=== PATIENT | female | born 1940 | race Two or more races ===

== ENCOUNTER 2025-09-12 12:15 | Inpatient (IN) | payer BC, MEDICAID ==
[~2025-09-12] VITALS: Ht 170.2 cm; Wt 78.6 kg
--- NOTE | 2025-09-12 13:06 | ED.PDOC ---
History of Present Illness HPI Comments 85 year old female presents to the ED via EMS with a chief complaint of nausea/vomiting onset last night around 21:00. Patient states she was seen at urgent care yesterday, given antibiotics for LT hand dog bite, took 1st course last night around 17:00. At around 21:00 she began experiencing nausea, vomiting , shortness of breath. This morning, symptoms persisted, began experiencing abdominal pain with some chest discomfort. She was given Tylenol 1 g as well as NS 300 mL in route to ED by EMS. Patient refused Nitro and Fentanyl in route to ED. Denies dizziness, blurred vision, numbness/tingling, fever, chills, dysuria, hematuria. No other symptoms or modifying factors present at this time. Chief Complaint: Chest Pain Time Seen by MD: 12:50 Reviewed Notes: Medications, Allergies Allergies: Coded Allergies: Bacitracin (Verified Allergy, Severe, 09/12/25) Neomycin (Verified Allergy, Severe, 09/12/25) Polymyxin B (Verified Allergy, Severe, 09/12/25) Information Source: Patient, Emergency Med Personnel Mode of Arrival: EMS Severity: Moderate Timing: Hours Duration: Since onset Prehospital treatment: Other Past Medical History PAST MEDICAL HISTORY: Cancer Surgical History: Appendectomy, Cholecystectomy HEAD AUTOMATIC SAWYER History: No Pertinent HEAD AUTOMATIC SAWYER History Family History Family History: Reviewed,noncontributory to illness, No family hx of Cancer, No family hx of DM, No family hx of Heart celso, No family hx of HTN, No family hx ofKidney celso, No family hx of Liver celso, No family hx of Lung celso, No family hx of Stroke Social History Smoker: Non-Smoker Alcohol: Denies ETOH Use Drugs: Denies Drug Use Lives In: Home Constitutional: denies: chills, diaphoresis, fatigue, fever, malaise, sweats, weakness, others EENTM: denies: blurred vision, double vision, ear bleeding, ear discharge, ear drainage, ear pain, ear ringing, eye pain, eye redness, hearing loss, mouth pain, mouth swelling, nasal discharge, nose bleeding, nose congestion, nose pain, photophobia, tearing, throat pain, throat swelling, voice changes, others Respiratory: reports: shortness of breath; denies: cough, hemoptysis, orthopnea, SOB at rest, SOB with excertion, stridor, wheezing, others Cardiovascular: denies: chest pain, dizzy spells, diaphoresis, Dyspnea on exertion, edema, irregular heart beat, left arm pain, lightheadedness, pa lpitations, PND, syncope, others Gastrointestinal: reports: nausea, vomiting; denies: abdomen distended, abdominal pain, blood streaked bowels, constipated, diarrhea, dysphagia, difficulty swallowing, hematemesis, melena, poor appetite, poor fluid intake, rectal bleeding, rectal pain, others Genitourinary: denies: abnormal vagina bleeding, burning, dyspareunia, dysuria, flank pain, frequency, hematuria, incontinence, pain, , vagina discharge, urgency, others Neurological: denies: dizziness, fainting, headache, left sided numbness, left sided weakness, numbness, paresthesia, pre-existing deficit, right sided numbness, right sided weakness, seizure, speech problems, tingling, tremors, weakness, others Musculoskeletal: denies: back pain, gout, joint pain, joint swelling, muscle pain, muscle stiffness, neck pain, others Integumetry: reports: wounds (LT hand); denies: bruises, change in color, change in hair/nails, dryness, laceration, lesions, lumps, rash, others Allergic/Immunocompromised: denies: Difficulty Healing, Frequent Infections, Hives, Itching, others Hematologic/Lymphatic: denies: anemia, blood clots, easy bleeding, easy bruising, swollen glands, others Endocrine: denies: excessive hunger, excessive sweating, excessive thirst, excessive urination, flushing, intolerance to cold, intolerance to heat, unexplained weight gain, unexplained weight loss, others Psychiatric: denies: anxiety, bipolar disorder, depression, hopeless, panic disorder, schizophrenia, sleepless, suicidal, others All Other Systems: Reviewed and Negative Physical Exam General Appearance: Moderate Distress, Normal HEENT: Normal ENT Inspection, Pharynx Normal, TMs Normal Neck: Full Range of Motion, Non-Tender, Normal, Normal Inspection Respiratory: Chest Non-Tender, Lungs Clear, No Accessory Muscle Use, No Respiratory Distress, Normal Breath Sounds Cardiovascular: No Edema, No JVD, No Murmur, No Gallop, Normal Peripheral Pulses, Regular Rate/Rhythm Breast Exam: Deferred Gastrointestinal: No Organomegaly, Non Tender, No Pulsatile Mass, Normal Bowel Sounds, Soft Genitalia: Deferred Pelvic: Deferred Rectal: Deferred Extremities: No calf tenderness, Normal capillary refill, Normal inspection, Normal range of motion, Non-tender, No pedal edema Musculoskeletal : Apperance: Normal Neurologic: Alert, c s s representative II-XII nml as Tested, No Motor Deficits, Normal Affect, Normal Mood, No Sensory Deficits Cerebellar Function: NOT DONE Reflexes: NOT DONE Skin: Dry, Normal Color, Warm, Wounds (Wound from a cat left hand) Peripheral Pulses: 3+ Radial (R), 3+ Radial (L) Lymphatic: No Adenopathy Was a procedure done? Was a procedure done?: No Differential Dx Considerations may include: Cellulitis Electrolyte imbalance X-Ray, Labs, Meds, VS Vital Signs Date Time Temp Pulse Resp B/P (MAP) Pulse Ox O2 Delivery O2 Flow Rate FiO2 09/12/25 13:23 77 09/12/25 12:57 Room Air* 0 21 09/12/25 12:56 98.4 78 19 111/42 (65) 99 98.4 09/12/25 12:21 83 09/12/25 12:15 98.4 100 18 107/74 97 98.4 Lab Test 09/12/25 14:55 09/12/25 13:01 Range/Units Troponin I High Sensitivity 2587 *H 2393 *H </=34 ng/L White Blood Count 14.8 H 4.4-10.8 10^3/uL Red Blood Count 4.27 4.0-5.20 10^6/uL Hemoglobin 13.0 12.2-16.2 g/dL Hematocrit 40.9 36.0-46.0 % Mean Corpuscular Volume 95.9 80.0-100.0 fL Mean Corpuscular Hemoglobin 30.6 28.0-32.0 pg Mean Corpuscular Hemoglobin Concent 31.9 L 32.0-36.0 g/dL Red Cell Distribution Width 14.5 H 11.8-14.3 % Platelet Count 220 140-450 10^3/uL Mean Platelet Volume 8.6 6.9-10.8 fL Neutrophils (%) (Auto) 89.6 H 37.0-80.0 % Lymphocytes (%) (Auto) 4.5 L 10.0-50.0 % Monocytes (%) (Auto) 5.8 0.0-12.0 % Eosinophils (%) (Auto) 0.0 0.0-7.0 % Basophils (%) (Auto) 0.1 0.0-2.0 % Neutrophils # (Auto) 13.2 H 1.6-8.6 10 ^3/uL Lymphocytes # (Auto) 0.7 0.4-5.4 10 ^3/uL Monocytes # (Auto) 0.9 0-1.3 10 ^3/uL Eosinophils # (Auto) 0 0-0.8 10 ^3/uL Basophils # (Auto) 0 0-0.2 10 ^3/uL Nucleated Red Blood Cells 0.0 % Sodium Level 141 136-145 mmol/L Potassium Level 4.3 3.5-5.1 mmol/L Chloride Level 107 98-107 mmol/L Carbon Dioxide Level 19 L 20-31 mmol/L Anion Gap 15 5-15 Blood Urea Nitrogen 24 H 9-23 mg/dL Creatinine 0.83 0.550-1.02 mg/dL Glomerular Filtration Rate Calc 68 >90 mL/min BUN/Creatinine Ratio 28.9 H 10.0-20.0 Serum Glucose 123 H 74-106 mg/dL Calcium Level 9.0 8.7-10.4 mg/dL Current Medications Medications (Trade) Dose Ordered Sig/Wan Route Start Time Stop Time Status Last Admin Sodium Chloride 1,000 ml @ 1,000 mls/hr Q1H ONCE IV 09/12/25 13:15 09/12/25 14:14 DC 09/12/25 13:07 Piperacillin Sod/ Tazobactam Sod 100 ml @ 100 mls/hr ONCE ONCE IV 09/12/25 13:15 09/12/25 14:14 DC 09/12/25 13:38 Clindamycin Phosphate 50 ml @ 50 mls/hr ONCE ONCE IV 09/12/25 13:15 09/12/25 14:14 DC 09/12/25 13:07 Enoxaparin Sodium (Lovenox) 70 mg ONCE ONCE SC 09/12/25 13:45 09/12/25 13:46 DC 09/12/25 13:42 Aspirin 325 mg ONCE ONCE PO 09/12/25 14:45 09/12/25 15:11 DC 09/12/25 15:19 Atorvastatin Calcium (Lipitor) 80 mg ONCE ONCE PO 09/12/25 14:45 09/12/25 15:11 DC 09/12/25 15:19 Patient alert. Complaining of chest pain wound in the left hand. Vitals stable. Answering all questions. On examination she does have redness around the wound. Cardiac marker elevated. Was given Lovenox. Was given antibiotics. Establish intravenous access. Was given fluids. EKG does not show any acute changes. Cardiology consultation. Explained to the patient. Continue to monitor. Time of 1ST Reevaluation: 13:20 Reevaluation 1ST: Unchanged Patient Education/Counseling: Diagnosis, Treatment, Prognosis Family Education/Counseling: No Family Present SEPSIS Sepsis Screen Date sepsis recognized/suspect: Sep 12, 2025 Time Sepsis recognized/suspect: 123 Recent Procedure: No On Antibiotic Therapy: No Respiratory Rate >20: No Heart Rate >90: No Temp<36 C (96.8 F) or >38.3 C: No SBP <90 or MAP <65 mmHG: No New Acute Mental Status Change: No Is the patient on CPAP, BIPAP,: No Physician Orders Electrocardigram (09/12/25 12:21) Electrocardigram (09/12/25 13:21) Electrocardigram (09/12/25 15:21) Chest Portable (09/12/25 12:41) Urinalysis (09/12/25 12:41) Ct Ab Pel Wo Con-No Oral Or Iv (09/12/25 14:34) Blood Culture (09/12/25 14:34) Vital Signs Date Time Temp Pulse Resp B/P (MAP) Pulse Ox O2 Delivery O2 Flow Rate FiO2 09/12/25 13:23 77 09/12/25 12:57 Room Air* 0 21 09/12/25 12:56 98.4 78 19 111/42 (65) 99 98.4 09/12/25 12:21 83 09/12/25 12:15 98.4 100 18 107/74 97 98.4 Laboratory Tests Test 09/12/25 13:01 White Blood Count 14.8 10^3/uL (4.4-10.8) H Medications Medications Dose Ordered Sig/Wan Route Start Time Stop Time Status Last Admin Dose Admin Aspirin 325 mg ONCE ONCE PO 09/12/25 14:45 09/12/25 15:11 DC 09/12/25 15:19 Atorvastatin Calcium 80 mg ONCE ONCE PO 09/12/25 14:45 09/12/25 15:11 DC 09/12/25 15:19 Clindamycin Phosphate 50 ml @ 50 mls/hr ONCE ONCE IV 09/12/25 13:15 09/12/25 14:14 DC 09/12/25 13:07 Enoxaparin Sodium 70 mg ONCE ONCE SC 09/12/25 13:45 09/12/25 13:46 DC 09/12/25 13:42 Piperacillin Sod/ Tazobactam Sod 100 ml @ 100 mls/hr ONCE ONCE IV 09/12/25 13:15 09/12/25 14:14 DC 09/12/25 13:38 Sodium Chloride 1,000 ml @ 1,000 mls/hr Q1H ONCE IV 09/12/25 13:15 09/12/25 14:14 DC 09/12/25 13:07 Departure 1 Departure Time of Disposition: 17:46 Impression: Primary Impression: NSTEMI (non-ST elevated myocardial infarction) Additional Impressions: Autonomic disorder Cellulitis Qualified Codes: L03.114 - Cellulitis of left upper limb Disposition: 09 ADMITTED INPATIENT Admit to: Med Surg Condition: Guarded Critical Care Note Critical Care Time?: Yes (90 min-critical care time only) Stability Stability form required: No Heart Score Heart Score: Heart Score Response (Comments) Value History Slightly Suspicious 0 EKG Normal 0 Age >65 2 Risk Factors >3 or Hx ASHD 2 Troponin >3 x's Normal limit 2 Total 6 I personally scribed for PALMA FELDMAN MD ([email or web address]) on 09/12/25 at 13:06. Electronically submitted by Kelly Camacho ([email or web address]). PALMA FELDMAN MD Sep 12, 2025 13:06
[2025-09-12] MEDS: SODIUM CHLORIDE 0.9% 1,000 ML IV ONE (13:07)
[2025-09-12] MEDS: CLINDAMYCIN 300MG IV 50 ML IV ONE (13:07)
--- NOTE | 2025-09-12 13:24 | DVH ---
CHEST RADIOGRAPH Indication: sob Technique: Single frontal view of the chest was obtained COMPARISON: None FINDINGS: Lines and Tubes: None Lungs: Congestion Pleura: No effusion. No pneumothorax. Cardiomediastinal contours: Unremarkable Bones: Unremarkable IMPRESSION: Increased interstital prominence. This may represent pulmonary vascular congestion and/or viral pneum onia. Clinical correlation advised.
[2025-09-12] MEDS: PIPERACILLIN-TAZOB 3.375GM 100 ML IV ONE (13:38)
[2025-09-12] MEDS: ENOXAPARIN SOD 80 MG/0.8ML SYRINGE SC ONE (13:42)
[2025-09-12 14:07] LABS: Hematocrit 40.9 % (36.0-46.0); Hemoglobin 13.0 g/dL (12.2-16.2); Mean Corpuscular Hemoglobin 30.6 pg (28.0-32.0); Mean Corpuscular Volume 95.9 fL (80.0-100.0); Nucleated Red Blood Cells % 0.0 %; Potassium 4.3 mmol/L (3.5-5.1); Sodium 141 mmol/L (136-145)
[2025-09-12 14:08] LABS: Anion Gap 15 (5-15); Chloride 107 mmol/L (98-107)
[2025-09-12 14:09] LABS: Calcium 9.0 mg/dL (8.7-10.4)
[2025-09-12 14:10] LABS: Carbon Dioxide 19 mmol/L (20-31)
[2025-09-12 14:14] LABS: BUN/Creatinine Ratio 28.9 (10.0-20.0); Blood Urea Nitrogen 24 mg/dL (9-23); Glucose 123 mg/dL (74-106)
--- NOTE | 2025-09-12 15:10 | DVHHPRES ---
History of Present Illness Resident Creating Document: LEVON COLE RESIDENT History of Present Illness This is a 85-year-old female with past medical history of hypothyroidism presented to the ED via EMS with chief complaints of nausea, vomiting, chest pain since last night around 9:00 p.m prior to this visit. The patient stated that chest pain which felt like heaviness sharp pain, 8/10, radiates to the left arm and associated with sweating, nausea,and vomiting. Patient states she was seen at urgent care yesterday, given antibiotics for Left hand dog bite, took 1st course last night around 17:00. At around 21:00 she began experiencing nausea, vomiting, shortness of breath. This morning, symptoms persisted, began experiencing abdominal pain with some chest discomfort. She was given Tylenol 1 g as well as NS 300 mL in route to ED by EMS. Patient refused Nitro and Fentanyl in route to ED. Denies dizziness, blurred vision, numbness/tingling, fever, chi lls, dysuria, hematuria. EKG demonstrated sinus rhythm, but troponin was elevated and up trending. Cardiology consulted and scheduled for left heart catheterization tomorrow. PCP: Dr. Debra Shah Past Medical History Hypothyroidism Past Surgical History: Appendectomy, Cholecystectomy Past Surgical History Appendectomy, cholecystectomy, lumpectomy of left breast for breast cancer, arthroscopy of left knee Family History Noncontributory Smoke: No ALCOHOL: none Drugs: None Past Social History Nonsmoker, nonalcoholic and never tried any drugs Lives alone and has caregiver comes 3 times a week Review of Systems Constitutional: Yes: Chills; No: Fever, Sweats, Weakness, Malaise, Other Eyes: No: Pain, Vision change, Conjunctivae inflammation, Eyelid inflammation, Other, Redness ENT: No: Ear pain, Ear discharge, Nose pain, Nose discharge, Nose congestion, Mouth pain, Mouth swelling, Throat pain, Throat swelling, Other Respiratory: Shortness of breath; No: Cough, Dry, SOB with excertion, Wheezing, Hemoptysis, Pleuritic Pain, Sputum, Wheezing, Other Cardiovascular: Chest Pain; No: Palpitations, Orthopnea, Paroxysmal Noc. Dyspnea, Edema, Lt Headedness, Other Gastrointestinal: Nausea, Vomiting; No: Abdominal Pain, Diarrhea, Constipation, Melena, Hematochezia, Other Genitourinary: No Dysuria, No Frequency, No Incontinence, No Hematuria, No Retention, No Other Musculoskeletal: No: other, neck pain, shoulder pain, arm pain, back pain, hand pain, leg pain, foot pain Skin: No: Rash, Lesions, Jaundice, Bruising, Other Neurological: No: Weakness, Numbness, Incoordination, Change in speech, Confusion, Seizures, Other Allergies: Coded Allergies: Bacitracin (Verified Allergy, Severe, 09/12/25) Neomycin (Verified Allergy, Severe, 09/12/25) Polymyxin B (Verified Allergy, Severe, 09/12/25) Exam Vital Signs Vital Signs Date Time Temp Pulse Resp B/P (MAP) Pulse Ox O2 Delivery O2 Flow Rate FiO2 09/12/25 13:23 77 09/12/25 12:57 Room Air* 0 21 09/12/25 12:56 98.4 19 111/42 (65) 99 98.4 Exam Physical examination: General Appearance: Alert, Oriented X3, Cooperative, No acute distress HEENT: Atraumatic, PERRLA, EOMI, Mucous membrane moist/pink Respiratory: Clear to auscultation, Normal air movement Cardiovascular: Regular rate, Normal S1, Normal S2, No murmurs, no chest wall tenderness Abdominal: Normal bowel sounds, Soft, No tenderness, No hepatospenomegaly, No masses Extremities: No clubbing, No cyanosis, No edema, Normal pulses, No tend erness/swelling Skin: Bite marco on the dorsal surface of the left hand, No rashes, No breakdown, No significant lesion Neuro: Use walker, Normal speech, Strength at 5/5 X4 ext, Normal tone, Sensation intact, Cranial nerves 3-12 NL, Reflexes 2+ Psych/Mental Status: Mental status NL, Mood NL Labs/Xrays Labs Test 09/12/25 14:55 09/12/25 13:01 Range/Units White Blood Count 14.8 H 4.4-10.8 10^3/uL Red Blood Count 4.27 4.0-5.20 10^6/uL Hemoglobin 13.0 12.2-16.2 g/dL Hematocrit 40.9 36.0-46.0 % Mean Corpuscular Volume 95.9 80.0-100.0 fL Mean Corpuscular Hemoglobin 30.6 28.0-32.0 pg Mean Corpuscular Hemoglobin Concent 31.9 L 32.0-36.0 g/dL Red Cell Distribution Width 14.5 H 11.8-14.3 % Platelet Count 220 140-450 10^3/uL Mean Platelet Volume 8.6 6.9-10.8 fL Neutrophils (%) (Auto) 89.6 H 37.0-80.0 % Lymphocytes (%) (Auto) 4.5 L 10.0-50.0 % Monocytes (%) (Auto) 5.8 0.0-12.0 % Eosinophils (%) (Auto) 0.0 0.0-7.0 % Basophils (%) (Auto) 0.1 0.0-2.0 % Neutrophils # (Auto) 13.2 H 1.6-8.6 10 ^3/uL Lymphocytes # (Auto) 0.7 0.4-5.4 10 ^3/uL Monocytes # (Auto) 0.9 0-1.3 10 ^3/uL Eosinophils # (Auto) 0 0-0.8 10 ^3/uL Basophils # (Auto) 0 0-0.2 10 ^3/uL Nucleated Red Blood Cells 0.0 % Sodium Level 141 136-145 mmol/L Potassium Level 4.3 3.5-5.1 mmol/L Chloride Level 107 98-107 mmol/L Carbon Dioxide Level 19 L 20-31 mmol/L Anion Gap 15 5-15 Blood Urea Nitrogen 24 H 9-23 mg/dL Creatinine 0.83 0.550-1.02 mg/dL Glomerular Filtration Rate Calc 68 >90 mL/min BUN/Creatinine Ratio 28.9 H 10.0-20.0 Serum Glucose 123 H 74-106 mg/dL Calcium Level 9.0 8.7-10.4 mg/dL SEPSIS Sepsis Screen Date sepsis recognized/suspect: Sep 12, 2025 Time Sepsis recognized/suspect: 1231 Recent Procedure: No On Antibiotic Therapy: No Respiratory Rate >20: No Heart Rate >90: No Temp<36 C (96.8 F) or >38.3 C: No SBP <90 or MAP <65 mmHG: No New Acute Mental Status Change: No Is the patient on CPAP, BIPAP,: No Physician Orders Electrocardigram (09/12/25 12:21) Troponin-I Hs (09/12/25 13:21) Troponin-I Hs (09/12/25 15:21) Electrocardigram (09/12/25 13:21) Electrocardigram (09/12/25 15:21) Chest Portable (09/12/25 12:41) Urinalysis (09/12/25 12:41) Echo 2d Mode Cardiac Dop (09/12/25 13:57) Ct Ab Pel Wo Con-No Oral Or Iv (09/12/25 14:34) Aspirin Tablet (09/12/25 14:45) Atorvastatin (Lipitor) (09/12/25 14:45) Blood Culture (09/12/25 14:34) Admit (09/12/25 15:07) Nitroglycerin Sublingual (Ntrostat Subli (09/12/25 15:15) Morphine Sulfate Injection (09/12/25 15:15) Oxygen By Nasal Cannula (09/12/25 15:07) Stat Ekg For Chest Pain (09/12/25 15:07) Notify Md Of Changes From Base (09/12/25 15:07) Paper Sales Representative For 24 Hours (09/12/25 15:07) Emergency Dysrhythmia Protocol (09/12/25 15:07) Rhythm Strips Once Every Shift (09/12/25 15:07) * Cardiology Consult (09/12/25 15:07) Vital Signs Date Time Temp Pulse Resp B/P (MAP) Pulse Ox O2 Delivery O2 Flow Rate FiO2 09/12/25 13:23 77 09/12/25 12:57 Room Air* 0 21 09/12/25 12:56 98.4 78 19 111/42 (65) 99 98.4 09/12/25 12:21 83 09/12/25 12:15 98.4 100 18 107/74 97 98.4 Laboratory Tests Test 09/12/25 13:01 White Blood Count 14.8 10^3/uL (4.4-10.8) H Medications Medications Dose Ordered Sig/Wan Route Start Time Stop Time Status Last Admin Dose Admin Clindamycin Phosphate 50 ml @ 50 mls/hr ONCE ONCE IV 09/12/25 13:15 09/12/25 14:14 DC 09/12/25 13:07 50 MLS/HR Enoxaparin Sodium 70 mg ONCE ONCE SC 09/12/25 13:45 09/12/25 13:46 DC 09/12/25 13:42 70 MG Piperacillin Sod/ Tazobactam Sod 100 ml @ 100 mls/hr ONCE ONCE IV 09/12/25 13:15 09/12/25 14:14 DC 09/12/25 13:38 100 MLS/HR Sodium Chloride 1,000 ml @ 1,000 mls/hr Q1H ONCE IV 09/12/25 13:15 09/12/25 14:14 DC 09/12/25 13:07 1,000 MLS/HR Assessment/Plan Assessment/Plan Assessment and plan # Acute chest pain likely due to NSTEMI # Possible NSTEMI type 1 # Abdominal pain, nausea and vomiting, rule out colitis # Possible cellulitis of the left hand Plan: - Admit to the telemetry - Troponin is up trending - Cardiology evaluated the patient and recommended left heart catheterization tomorrow - Patient was given 1 L IV bolus - IV normal saline at 75 mL/hours - NPO after midnight - Patient was given aspirin 325 mg once, atorvastatin 80 mg once - Patient was given Lovenox 70 mg SC, IV heparin drip as per protocol from 4 am on 09/13/25 - Pending echo, CT abdomen pelvis without contrast, blood culture, urine culture, urinalysis - IV Zosyn 3.375 g once and Q 8 hours - DVT prophylaxis due to the procedure tomorrow Goal of care discussed with the patient for more than 20 minutes full code Plan discussed with Dr. Lewis Plan discussed with: Patient, Other (RN) My Orders Orders - LEVON COLE RESIDENT Procedure Category Date Status Time Admit ADMIT 09/12/25 Verified 15:07 Nitroglycerin PHA 09/12/25 Verified Sublingual (Ntrostat 15:15 Morphine Sulfate PHA 09/12/25 Verified Injection 15:15 Oxygen By Nasal RT 09/12/25 Verified Cannula 15:07 Stat Ekg For Chest [facility] 09/12/25 Verified Pain 15:07 Notify Of Changes [facility] 09/12/25 Verified From Base 15:07 Paper Sales Representative For [facility] 09/12/25 Verified 24 Hours 15:07 Emergency Dysrhythmia [facility] 09/12/25 Verified Protocol 15:07 Rhythm Strips Once [facility] 09/12/25 Verified Every Shift 15:07 * Cardiology Consult CONS 09/12/25 Verified 15:07 Date of Service: Sep 12, 2025 Billing Provider: BREANA LEWIS MD Common Visit Codes: [id number] INP/OBS CARE (HIGH) LEVON COLE RESIDENT Sep 12, 2025 15:10 BREANA LEWIS MD Sep 12, 2025 21:39
[2025-09-12] MEDS ORDERED: MORPHINE SULFATE INJ 2 MG/ml SYRG IV PRN (15:15)
[2025-09-12] MEDS ORDERED: NITROGLYCERIN 0.4 MG SL TAB SL PRN (15:15)
[2025-09-12] MEDS: ATORVASTATIN 20 MG TAB PO ONE (15:19)
--- NOTE | 2025-09-12 16:07 | DVH ---
Exam: CT CT AB PEL WO CON-NO ORAL OR IV History: abd pain/n/v Comparison Study: None Technique: Multidetector spiral CT of the abdomen was performed from lung bases to pubic symphysis. I maging was performed without IV contrast. Axial, coronal and sagittal multiplanar reformats were obta ined from the axial data set by the technologist. Radiation Dose : 1. Abdomen/Pelvis: CTDIvol 22.03 mGy, DLP 1102.16 mGy*cm. Findings: Evaluation of solid organs is limited due to lack of intravenous contrast use. Lung Bases: No acute or significant lung base finding. Normal heart size. No pleural or pericardial effusion. Liver: The liver is normal in size. No focal lesions. Gallbladder and Biliary Tree: Gallbladder is surgically absent. Spleen: Unremarkable Pancreas: The pancreas is grossly normal in appearance. Adrenal Glands: Unremarkable Kidneys: Kidneys are grossly normal without calculi or hydronephrosis. Bladder: Grossly unremarkable for degree of distention. Bowel: The stomach is grossly normal in appearance. Small bowel and colon are normal in caliber and d istribution. The appendix is not visualized; however, no secondary findings of acute appendicitis moo ntified. Ascites: Absent Lymphadenopathy: No mesenteric, retroperitoneal or periportal lymphadenopathy. Abdominal Wall and Mesentery: Small right inguinal hernia containing a short loop of nonobstructed no ninflamed distal small bowel.. Vasculature: The visualized abdominal aorta is normal in size and caliber. Evaluation of abdominal a nd pelvic vessels is limited due to lack of intravenous contrast. Pelvic Organs: Unremarkable Musculoskeletal: No aggressive focal bony lesions, acute fractures or dislocation. IMPRESSION: No acute abdominal or pelvic findings. Small right inguinal hernia containing a short segment of nonobstructed noninflamed distal small aria l. Radiation optimization: All CT scans at this facility use at least one of these dose optimization zee hniques: automated exposure control mA and/or kV adjustment per patient size (includes targeted exam s where dose is matched to clinical indication) or iterative reconstruction.
[2025-09-12] MEDS: CLOPIDOGREL BISULFATE 75 MG TAB PO ONE (16:09)
[2025-09-12 16:20] LABS: INR 1.07 (0.9-1.15); Partial Thromboplastin Time 29.6 SEC (24.5-34.5); Prothrombin Time 11.3 sec (9.3-11.8)
--- NOTE | 2025-09-12 16:20 | DVHINCON2 ---
Date Seen: Sep 12, [address] Ding Reason for Consultation chest pain- NSTEMI History of Present Illness This is an 85-year-old female with a past medical history of hypothyroidism, currently on levothyroxine and aspirin, who presented with one day of chest pain. The pain was described as pressure-like, located on the left side of the chest, non-radiating, and rated as 9/10 in intensity at onset around 9 p.m. yesterday, currently 3/10. The patient denies associated dyspnea, diaphoresis, or palpitations. She reports nausea and vomiting, which she attributes to antibiotics started four days ago for a dog scratch. She denies fever, chills, or recent exertional symptoms. The patient is normally functional and independent in activities of daily living. She denies prior cardiac disease. Family history is notable for her sons at age 62 from a myocardial infarction while awaiting open-heart surgery. Initial troponin was elevated at 2000 ng/L. EKG reviewed shows ST-T wave abnormalities concerning for ischemia. Echocardiogram performed today shows reduced ejection fraction with akinetic apex, consistent with an ischemic pattern. Past Medical History: Hypothyroidism COPD: second hand smoking Medications: Levothyroxine Aspirin Allergies: No known drug allergies Family History: Son of myocardial infarction at 62 years old Social History: Denies tobacco, alcohol, or illicit drug use Retired; lives independently Allergies: Coded Allergies: Bacitracin (Verified Allergy, Severe, 09/12/25) Neomycin (Verified Allergy, Severe, 09/12/25) Polymyxin B (Verified Allergy, Severe, 09/12/25) Current Medications Current Medications Medications (Trade) Dose Ordered Sig/Wan Route PRN Reason Start Time Stop Time Status Last Admin Nitroglycerin (Ntrostat Sublingual) 0.4 mg Q5MINP PRN SL FOR CHEST PAIN 09/12/25 15:15 Morphine Sulfate 2 mg Q30M PRN IV FOR CHEST PAIN 09/12/25 15:15 Piperacillin Sod/ Tazobactam Sod 100 ml @ 100 mls/hr Q8HR IV 09/12/25 22:00 UNV Review of Systems General: No fever, chills, or weight loss. HEENT: No headache or visual changes. Cardiac: Positive for chest pain, no palpitations. Respiratory: No shortness of breath or cough. GI: Positive for nausea and vomiting, no abdominal pain. : No dysuria or frequency. Neuro: No focal weakness or dizziness. MSK: No joint pain or swelling. Skin: Healing scratch on arm and hand, no erythema or drainage. Vital Signs Vital Signs Date Time Temp Pulse Resp B/P (MAP) Pulse Ox O2 Delivery O2 Flow Rate FiO2 09/12/25 13:23 77 09/12/25 12:57 Room Air* 0 21 09/12/25 12:56 98.4 19 111/42 (65) 99 98.4 Physical Exam General: Elderly female, alert, cooperative, in no acute distress. HEENT: Normocephalic, atraumatic. Mucous membranes moist. Neck: No JVD, no carotid bruits. Cardiac: Regular rate and rhythm, no murmurs, rubs, or gallops. Lungs: Crackles bibasal Abdomen: Soft, non-tender, non-distended. No palpable hernias Extremities: No edema or cyanosis. Neuro: Alert and oriented x3, no focal deficits. Skin: Warm, dry. Labs/Diagnostic Data Labs Test 09/12/25 14:55 09/12/25 13:01 Range/Units Troponin I High Sensitivity 2587 *H </=34 ng/L White Blood Count 14.8 H 4.4-10.8 10^3/uL Red Blood Count 4.27 4.0-5.20 10^6/uL Hemoglobin 13.0 12.2-16.2 g/dL Hematocrit 40.9 36.0-46.0 % Mean Corpuscular Volume 95.9 80.0-100.0 fL Mean Corpuscular Hemoglobin 30.6 28.0-32.0 pg Mean Corpuscular Hemoglobin Concent 31.9 L 32.0-36.0 g/dL Red Cell Distribution Width 14.5 H 11.8-14.3 % Platelet Count 220 140-450 10^3/uL Mean Platelet Volume 8.6 6.9-10.8 fL Neutrophils (%) (Auto) 89.6 H 37.0-80.0 % Lymphocytes (%) (Auto) 4.5 L 10.0-50.0 % Monocytes (%) (Auto) 5.8 0.0-12.0 % Eosinophils (%) (Auto) 0.0 0.0-7.0 % Basophils (%) (Auto) 0.1 0.0-2.0 % Neutrophils # (Auto) 13.2 H 1.6-8.6 10 ^3/uL Lymphocytes # (Auto) 0.7 0.4-5.4 10 ^3/uL Monocytes # (Auto) 0.9 0-1.3 10 ^3/uL Eosinophils # (Auto) 0 0-0.8 10 ^3/uL Basophils # (Auto) 0 0-0.2 10 ^3/uL Nucleated Red Blood Cells 0.0 % Sodium Level 141 136-145 mmol/L Potassium Level 4.3 3.5-5.1 mmol/L Chloride Level 107 98-107 mmol/L Carbon Dioxide Level 19 L 20-31 mmol/L Anion Gap 15 5-15 Blood Urea Nitrogen 24 H 9-23 mg/dL Creatinine 0.83 0.550-1.02 mg/dL Glomerular Filtration Rate Calc 68 >90 mL/min BUN/Creatinine Ratio 28.9 H 10.0-20.0 Serum Glucose 123 H 74-106 mg/dL Calcium Level 9.0 8.7-10.4 mg/dL Assessment #Chest pain / NSTEMI type 1 (likely ischemic cardiomyopathy) Elevated troponins, EKG with ischemic changes, echo prelim showing low EF and akinetic apex. Aspirin 325 mg Plavix 300 mg Atorvastatin 80 mg Enoxaparin already given Maintain telemetry. Left heart catheterization tomorrow. Monitor hemodynamics closely. #Hypothyroidism Continue levothyroxine. #Nausea/vomiting likely secondary to antibiotic intolerance Supportive management, antiemetics as needed. #DVT prophylaxis: Heparin SQ. #Code status: Full code. Case discussed with Dr Kohli Time spent on critical care 71 min Plan discussed with: Patient, Other (caregiver) NYHA Physical activity limitations: Class1(None)absent sob, Date of Service: Sep 12, 2025 Billing Provider: POONAM CAVANAUGH Sr., MD Cardiology Common Codes: [id number]-[id number] CARE 30-74 MIN ALEXIS VELASCO RESIDENT Sep 12, 2025 16:20
[2025-09-12] MEDS: SODIUM CHLORIDE 0.9% 1,000 ML IV SCH ×2 (16:29→20:45)
[2025-09-12 18:15] VITALS: PULSE 74; RESP 18; O2SAT 98
[2025-09-12 19:02] VITALS: BP 93/45; PULSE 74; RESP 18; TEMP 98.6; O2SAT 98
[2025-09-12 20:00] VITALS: PULSE 61; PULSE 72; RESP 18; O2SAT 97
[2025-09-12 21:00] VITALS: BP 103/46; PULSE 61; RESP 16; TEMP 98.3; O2SAT 97
[2025-09-12] MEDS ORDERED: HEPARIN DRIP/D5W 100UNITS/ML 250 ML IV SCH (21:30)
[2025-09-12] MEDS: ONDANSETRON HCL 4 MG/2 ML VIAL IV PRN (21:31)
[2025-09-12] MEDS: PIPERACILLIN-TAZOB 3.375GM 100 ML IV SCH (22:00)
[2025-09-12] MEDS: HEPARIN DRIP/D5W 100UNITS/ML 250 ML IV SCH (23:39)
[2025-09-13] VITALS (13 sets, daily range): BP systolic 104–129; BP diastolic 34–62; PULSE 57–75; RESP 12–20; TEMP 98–99; O2SAT 93–97
[2025-09-13] MEDS ORDERED: HYDROmorphone HCL 2 MG/ML VL/or syr IV ONE (02:00)
[2025-09-13] MEDS: SODIUM CHLORIDE 0.9% 1,850 ML IV ONE (02:00)
[2025-09-13] MEDS ORDERED: HEPARIN SODIUM (PORCINE) 5000 UNITS/ML 1ML VIAL IV ONE (04:00)
[2025-09-13 06:29] LABS: Hematocrit 35.7 % (36.0-46.0); Hemoglobin 11.9 g/dL (12.2-16.2); Mean Corpuscular Hemoglobin 31.3 pg (28.0-32.0); Mean Corpuscular Volume 93.5 fL (80.0-100.0); Nucleated Red Blood Cells % 0.0 %
[2025-09-13 06:46] LABS: Alanine Aminotransferase 39 U/L (7-40); Albumin 3.5 g/dL (3.2-4.8); Alkaline Phosphatase 70 U/L (46-116); Anion Gap 10 (5-15); BUN/Creatinine Ratio 19.6 (10.0-20.0); Blood Urea Nitrogen 20 mg/dL (9-23); Carbon Dioxide 23 mmol/L (20-31); Potassium 3.9 mmol/L (3.5-5.1); Sodium 141 mmol/L (136-145); Total Protein 6.4 g/dL (5.7-8.2)
[2025-09-13 06:47] LABS: INR 1.14 (0.9-1.15); Prothrombin Time 11.9 sec (9.3-11.8)
[2025-09-13 06:49] LABS: Partial Thromboplastin Time 93.9 SEC (24.5-34.5)
[2025-09-13 06:54] LABS: Bilirubin, Total 2.3 mg/dL (0.2-1.0); Calcium 8.7 mg/dL (8.7-10.4); Chloride 108 mmol/L (98-107); Glucose 118 mg/dL (74-106)
[2025-09-13] MEDS: HEPARIN DRIP/D5W 100UNITS/ML 250 ML IV SCH (08:03)
[2025-09-13] MEDS: CLOPIDOGREL BISULFATE 75 MG TAB PO SCH (08:53)
[2025-09-13] MEDS: IODIXANOL 320MG/ML 100ML BTL IV ONE (10:29)
[2025-09-13] MEDS: ANGIOMAX 250 MG VIAL IV ONE (11:34)
[2025-09-13] MEDS: VERAPAMIL 2.5MG/ML INJ 2ML VIAL IV ONE (11:35)
[2025-09-13] MEDS: HEPARIN SODIUM (PORCINE) 5000 UNITS/ML 1ML VIAL ONE (11:35)
[2025-09-13] MEDS: fentaNYL CITRATE 100 MCG/2 ML VL ONE (11:35)
[2025-09-13] MEDS: SODIUM CHL 0.9% 0 ML ONE (11:35)
[2025-09-13] MEDS: LIDOCAINE 2%HCL (LOCAL ANESTH.) INJ 20ML MDV ONE (11:35)
[2025-09-13] MEDS: MIDAZOLAM HCL 2MG/2ML 2ml VIAL (1mg/ml) ONE (11:36)
--- NOTE | 2025-09-13 12:10 | DVHSR ---
APPROVED REPORT EXAM: Two-dimensional and M-mode echocardiogram with Doppler and color Doppler. Blood Pressure: 111/42 mmHg INDICATION NSTEMI RISK FACTORS Height: 5'7", Weight: 154 DIMENSIONS LVDd3.6 (3.8-5.7cm)LA (2D)4.1 (1.9-4.0cm)Aortic Root3.0 (2.0-3.7cm) LVDs2.6 (2.5-4.0cm)LA (MM) (1.9-4.0cm)Aortic Cusp Exc1.2 (1.5-2.0cm) EF (%) 34.0 (55-70%)Rt. Atrium4.4 (1.9-4.0cm)Asc. Aorta cm IVSd0.8 (0.7-1.1cm)RV (D)3.9 (1.8-2.4cm) PWd0.9 (0.7-1.1cm) Mitral Valve MitralMitral Stenosis E wave1.13m/sMV Mean GR.mmHg A wave0.93m/sMV Peak GR.mmHg E/A ratio1.22D MVAcm2 DECEL [id number] 1/2 Timems Aortic Valve Aortic ValveAortic Stenosis V11.06m/Rinku Mean GR.10mmHg V22.06m/Rinku Peak GR.17mmHg LVOT Diameter1.8 (1.8-2.4cm)Doppler AVA1.31cm2 AI P 1/2 Bjhy885.81ms Pulmonic Valve V20.94m/s Tricuspid Valve TR Velocity3.19m/s [id number] Conclusion lvef 35% hypokinetic apex aortic sclerosis moderate tricuspid regurg RV enlarged mild biatrial enlargement
--- NOTE | 2025-09-13 13:42 | ECG ---
[facility] Test Date: 2025-09-13 Test Time: 01:17:01 Pat Name: FLAVIA FERNANDEZ Department: Respiratoy Room: 0246T A Gender: F Clin Nurse Spec: : 1940 Requested By: LEVON COLE Order Number: [id number] Reading MD: Measurements Intervals [place] Rate: 63 P: 48 WY: 173 QRS: -43 QRSD: 110 T: 183 QT: 460 QTc: 471 Interpretive Statements Sinus rhythm LVH with IVCD, LAD and secondary repol abnrm Please click the below link to view image of tracing.
--- NOTE | 2025-09-13 13:43 | ECG ---
[facility] Test Date: 2025-09-12 Test Time: 12:21:16 Pat Name: FLAVIA FERNANDEZ Department: [facility] ED Patient ID: [facility]-[id number] Room: 0246T Gender: F Cheese Tester: luz elena : 1940 Requested By: PALMA FELDMAN Order Number: [id number] Reading MD: Measurements Intervals [place] Rate: 83 P: 0 VT: 171 QRS: 99 QRSD: 109 T: -82 QT: 309 QTc: 363 Interpretive Statements Sinus rhythm Right axis deviation Consider anterior infarct Nonspecific repol abnormality, inferior leads Borderline ST elevation, lateral leads Please click the below link to view image of tracing.
--- NOTE | 2025-09-13 13:43 | ECG ---
[facility] Test Date: 2025-09-12 Test Time: 15:35:44 Pat Name: FLAVIA FERNANDEZ Department: [facility] ED Room: 0246T Gender: F Order Manager: luz elena : 1940 Requested By: PALMA FELDMAN Order Number: [id number] Reading MD: Measurements Intervals [place] Rate: 82 P: 107 [place]: 166 QRS: -34 QRSD: 112 T: 62 QT: 433 QTc: 506 Interpretive Statements Sinus rhythm Left ventricular hypertrophy ST elevation, consider inferior injury Prolonged QT interval Please click the below link to view image of tracing.
--- NOTE | 2025-09-13 13:43 | ECG ---
[facility] Test Date: 2025-09-12 Test Time: 13:23:15 Pat Name: FLAVIA FERNANDEZ Department: [facility] ED Room: 0246T Gender: F Hog Ringer: DAVID : 1940 Requested By: PALMA FELDMAN Order Number: [id number] Reading MD: Measurements Intervals [place] Rate: 77 P: 107 WI: 59 QRS: -35 QRSD: 121 T: 30 QT: 451 QTc: 511 Interpretive Statements Sinus rhythm Supraventricular bigeminy Short [place] interval Left ventricular hypertrophy Baseline wander in lead(s) V4 Please click the below link to view image of tracing.
[2025-09-13 14:45] LABS: INR 1.09 (0.9-1.15); Partial Thromboplastin Time 60.9 SEC (24.5-34.5); Prothrombin Time 11.5 sec (9.3-11.8)
--- NOTE | 2025-09-13 15:44 | DVHINCON2 ---
Date Seen: Sep 13, 2025 Referring Physician I am assuming the care of the patient from today onwards. Reason for Consultation Assuming the care of the patient as primary physician. History of Present Illness 85-year-old female with a known history of hypothyroidism, COPD from passive smoking exposure presented to the hospital with a left-sided chest pain 9/10 pressure-type patient was found to have elevated troponin. Patient was eventually admitted. Patient's chest pain was 9/10 which is currently resolved and nonradiating. Patient's denies any previous episode of similar kind. Past Medical History Hypothyroidism, COPD Past Surgical History Patient denies any surgical history. Family History: Patient reports no known family medical history. Allergies: Coded Allergies: Bacitracin (Verified Allergy, Severe, 09/12/25) Neomycin (Verified Allergy, Severe, 09/12/25) Polymyxin B (Verified Allergy, Severe, 09/12/25) Current Medications Current Medications Medications (Trade) Dose Ordered Sig/Wan Route PRN Reason Start Time Stop Time Status Last Admin Piperacillin Sod/ Tazobactam Sod 100 ml @ 25 mls/hr Q8HR IV 09/12/25 22:00 09/13/25 13:59 Sodium Chloride 1,000 ml @ 75 mls/hr [id number] IV 09/12/25 16:15 09/12/25 20:46 DC 09/12/25 16:29 Aspirin 81 mg DAILY PO 09/13/25 10:00 09/13/25 08:53 Clopidogrel Bisulfate (Plavix) 75 mg DAILY PO 09/13/25 10:00 09/13/25 08:53 Heparin Sodium/ Dextrose 250 ml @ 9 mls/hr Q24H IV 09/12/25 21:30 09/12/25 22:31 DC Ondansetron HCl (Zofran) 4 mg Q4HPRN PRN IV NAUSEA / VOMITING 09/12/25 20:45 09/12/25 21:31 Sodium Chloride 1,000 ml @ 50 mls/hr Q20H IV 09/12/25 20:45 09/12/25 20:45 Heparin Sodium/ Dextrose 250 ml @ 9 mls/hr Q24H IV 09/12/25 22:45 09/13/25 07:58 DC 09/12/25 23:39 Atorvastatin Calcium (Lipitor) 40 mg HS PO 09/13/25 22:00 Heparin Sodium/ Dextrose 250 ml @ 6 mls/hr Q24H IV 09/13/25 07:58 09/13/25 12:32 DC 09/13/25 08:03 Review of Systems Twelve review of system are negative besides mentioned above. 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 Labs/Diagnostic Data Labs Test 09/13/25 14:06 09/13/25 05:31 09/12/25 15:45 09/12/25 14:55 Range/Units Prothrombin Time 11.5 9.3-11.8 sec Prothrombin Time INR 1.09 0.9-1.15 Activated Partial Thromboplast Time 60.9 H 24.5-34.5 SEC White Blood Count 9.4 # 4.4-10.8 10^3/uL Red Blood Count 3.82 L 4.0-5.20 10^6/uL Hemoglobin 11.9 L 12.2-16.2 g/dL Hematocrit 35.7 #L 36.0-46.0 % Mean Corpuscular Volume 93.5 80.0-100.0 fL Mean Corpuscular Hemoglobin 31.3 28.0-32.0 pg Mean Corpuscular Hemoglobin Concent 33.4 32.0-36.0 g/dL Red Cell Distribution Width 13.9 11.8-14.3 % Platelet Count 168 140-450 10^3/uL Mean Platelet Volume 9.1 6.9-10.8 fL Neutrophils (%) (Auto) 73.5 37.0-80.0 % Lymphocytes (%) (Auto) 12.2 10.0-50.0 % Monocytes (%) (Auto) 14.1 H 0.0-12.0 % Eosinophils (%) (Auto) 0.1 0.0-7.0 % Basophils (%) (Auto) 0.1 0.0-2.0 % Neutrophils # (Auto) 6.9 1.6-8.6 10 ^3/uL Lymphocytes # (Auto) 1.1 0.4-5.4 10 ^3/uL Monocytes # (Auto) 1.3 0-1.3 10 ^3/uL Eosinophils # (Auto) 0 0-0.8 10 ^3/uL Basophils # (Auto) 0 0-0.2 10 ^3/uL Nucleated Red Blood Cells 0.0 % Sodium Level 141 136-145 mmol/L Potassium Level 3.9 3.5-5.1 mmol/L Chloride Level 108 H 98-107 mmol/L Carbon Dioxide Level 23 20-31 mmol/L Anion Gap 10 5-15 Blood Urea Nitrogen 20 9-23 mg/dL Creatinine 1.02 0.550-1.02 mg/dL Glomerular Filtration Rate Calc 53 >90 mL/min BUN/Creatinine Ratio 19.6 10.0-20.0 Serum Glucose 118 H 74-106 mg/dL Calcium Level 8.7 8.7-10.4 mg/dL Total Bilirubin 2.3 H 0.2-1.0 mg/dL Aspartate Amino Transferase (AST) 55 H 13-40 U/L Alanine Aminotransferase (ALT) 39 7-40 U/L Alkaline Phosphatase 70 46-116 U/L Total Protein 6.4 5.7-8.2 g/dL Albumin 3.5 3.2-4.8 g/dL Hemoglobin A1c 5.4 <5.7 % A1C Lactic Acid Level 1.5 0.4-2.0 mmol/L Magnesium Level 1.7 1.6-2.6 mg/dL B-Type Natriuretic Peptide 984.84 0-100 pg/mL Vitamin B12 Level 703 211-911 pg/mL Vitamin D 25-Hydroxy 32.9 30.0-100 ng/mL Thyroid Stimulating Hormone (TSH) 0.80 0.55-4.78 uIU/mL Troponin I High Sensitivity 2587 *H </=34 ng/L Assessment 85-year-old female with a known history of COPD, hypothyroidism initially presented to hospital with chest pain found to have 1. NSTEMI type 1 2. Ruled out ischemic cardiomyopathy 3. Hypothyroidism 4. COPD 5. Leukocytosis likely reactive -cardiac catheterization today, we will follow up Cardiology recommendations, continue aspirin beta izzy statin. Problems(with codes): (1) NSTEMI (non-ST elevated myocardial infarction) Plan discussed with: Patient Date of Service: Sep 13, 2025 Billing Provider: CHRISSY BURCH MD Common Visit Codes: NOT BILLABLE CHRISSY BURCH MD Sep 13, 2025 15:44
[2025-09-13] MEDS: ATORVASTATIN 20 MG TAB PO SCH (21:44)
[2025-09-13] MEDS: METOPROLOL TARTRATE 25 MG TAB PO SCH (21:45)
[2025-09-14] VITALS (8 sets, daily range): BP systolic 90–134; BP diastolic 42–92; PULSE 43–81; RESP 16–20; TEMP 97.5–98.6; O2SAT 94–98
[2025-09-14] MEDS: ACETAMINOPHEN 325 MG TAB PO PRN (06:34)
[2025-09-14 06:56] LABS: Alanine Aminotransferase 30 U/L (7-40); Alkaline Phosphatase 63 U/L (46-116); Anion Gap 9 (5-15); BUN/Creatinine Ratio 22.6 (10.0-20.0); Calcium 8.7 mg/dL (8.7-10.4); Carbon Dioxide 22 mmol/L (20-31); Glucose 93 mg/dL (74-106); Potassium 3.8 mmol/L (3.5-5.1); Sodium 140 mmol/L (136-145); Total Protein 6.3 g/dL (5.7-8.2)
[2025-09-14 06:57] LABS: Albumin 3.3 g/dL (3.2-4.8)
[2025-09-14 07:00] LABS: Bilirubin, Total 1.3 mg/dL (0.2-1.0); Blood Urea Nitrogen 24 mg/dL (9-23); Chloride 109 mmol/L (98-107)
--- NOTE | 2025-09-14 07:24 | DVHPN2 ---
Progress Note Date Seen: Sep 13, 2025 Medical Necessity Reason Pt with a Central, PICC or Fol: No Subjective Patient reports: Feels better Objective vital signs Vital Sign Date Time Temp Pulse Resp B/P (MAP) Pulse Ox O2 Delivery O2 Flow Rate FiO2 09/14/25 05:00 97.7 61 17 108/52 (70) 94 97.7 09/13/25 20:00 Room Air* 0 21 Total Intake and Output 09/13/25 09/13/25 09/14/25 14:59 22:59 06:59 Intake Total 100 ml 650 ml 460 ml Balance 100 ml 650 ml 460 ml medications Current Medications Medications Dose Ordered Sig/Wan Route Start Time Stop Time Status Last Admin Dose Admin Nitroglycerin 0.4 mg Q5MINP PRN SL 09/12/25 15:15 Morphine Sulfate 2 mg Q30M PRN IV 09/12/25 15:15 Piperacillin Sod/ Tazobactam Sod 100 ml @ 25 mls/hr Q8HR IV 09/12/25 22:00 09/14/25 05:56 25 MLS/HR Aspirin 81 mg DAILY PO 09/13/25 10:00 09/13/25 08:53 81 MG Clopidogrel Bisulfate 75 mg DAILY PO 09/13/25 10:00 09/13/25 08:53 75 MG Ondansetron HCl 4 mg Q4HPRN PRN IV 09/12/25 20:45 09/12/25 21:31 4 MG Sodium Chloride 1,000 ml @ 50 mls/hr Q20H IV 09/12/25 20:45 09/12/25 20:45 50 MLS/HR Atorvastatin Calcium 40 mg HS PO 09/13/25 22:00 09/13/25 21:44 40 MG Metoprolol Tartrate 12.5 mg BID PO 09/13/25 22:00 Acetaminophen 650 mg Q6HP PRN PO 09/14/25 06:30 09/14/25 06:34 650 MG Examination: GENERAL:Abnormal, HEENT:Abnormal, CVS:Normal, ABDOMEN:Normal laboratory and microbiology Laboratory Tests 09/14/25 05:37 09/13/25 05:31 Test 09/14/25 05:37 Range/Units Serum Glucose 93 74-106 mg/dL Microbiology Date/Time Source Procedure Growth Status 09/12/25 15:45 Blood Blood Culture - Preliminary NO GROWTH AFTER 24 HOURS OF INCUBATION. Resulted Problem List/Assessment/Plan Problem List/Assessment/Plan nstemi htn hL new onset CHF takotsubo CM---no severe cad on cath, asa, statin, low dose bb and acei possible dc home tomorrow Plan discussed with: Patient My Orders My Orders Orders - ALAN BASURTO MD Procedure Category Date Status Time Cl Left Heart Cath CL 09/13/25 Taken 07:25 Cardiac DIET 09/13/25 Transmitted Diet-2gna,Lofat,Lochol Dinner Post Cath Vital Signs KATHERINE 09/13/25 In Process Q 15min 14:36 Post Cath Activity KATHERINE 09/13/25 In Process Protocol 14:36 Communication Order ORDERS 09/13/25 Transmitted 12:35 Date of Service: Sep 14, 2025 Billing Provider: ALAN BASURTO MD Common Visit Codes: NOT BILLABLE ALAN BASURTO MD Sep 14, 2025 07:24
--- NOTE | 2025-09-14 07:25 | DVHOP2 ---
Operative Report Operative Report CARDIAC [facility]ILLERY [facility]EOROLOGICAL MAN PROCEDURE REPORT [place], [place] Date of Service: 09/13/25 Copier Repair Technician: Alan Basurto MD PROCEDURES PERFORMED: Coronary angiogram, left heart catheterization, conscious sedation administration and supervision, less than 15 minutes; fluoroscopy use and interpretation. PREOPERATIVE DIAGNOSES: nstemi with WMA, and lv dysfunction severe POSTOP DIAGNOSIS: mild cad DESCRIPTION OF PROCEDURE: The patient or appropriate family signed informed consent understanding the risks, benefits and alternatives of the procedure, they wished to proceed. The patient was brought to the cardiac roofing laborer in n.p.o. state. The patient was prepped in a sterile fashion. Sedation was used per cardiac cath protocol. I administered 2 mL of 2% lidocaine to the right wrist. With an antegrade front wall puncture. I cannulated the right radial artery and placed a 6-[place] Glidesheath slender. Next, an intra-arterial spasmolytic was administered. Next, a - 5French [place] catheter a were used for coronary angiogram and LVEDP measurement and pressure pullback. At the completion of procedure, all guides and wires were removed, and there were no immediate complications. FINDINGS: RCA: Moderate vessel off the right sinus of Valsalva, there is no severe flow limiting stenosis. LEFT MAIN: Moderate size left main, it bifurcates into LAD and circumflex. no stenosis CIRCUMFLEX: Moderate caliber vessel coming off the left main with no flow limiting stenosis. LAD: LAD is a moderate caliber vessel coming of the left main. no severe stenosis/. mild diffuse plaque LVEDP of 10 mmhg CONCLUSIONS: 1. no severe cad 2. takotsubo cardiomyopathy PLAN: Aggressive risk factor modification and medical management for the patient. ALAN BASURTO MD Sep 14, 2025 07:25
[2025-09-14] MEDS: EMPAGLIFLOZIN 10 MG TAB PO SCH (10:30)
[2025-09-14] MEDS: SACUBITRIL-VALSARTAN 24mg/26mg TAB PO SCH (10:30)
[2025-09-14] MEDS: SPIRONOLACTONE 25 MG TAB PO SCH (10:30)
[2025-09-14] MEDS ORDERED: SPIR25TA PO (14:33)
[2025-09-14] MEDS ORDERED: ATOR40TA52 PO (14:33)
[2025-09-14] MEDS ORDERED: EMPA1TAB PO (14:33)
[2025-09-14] MEDS ORDERED: NITR0.4S29 SL (14:33)
[2025-09-14] MEDS ORDERED: SACU1TAB PO (14:33)
--- NOTE | 2025-09-14 17:31 | DVHPN2 ---
Subjective Patient desaturation to 80% on exertion, biliary home oxygen, D-dimer was high mellitus CT angio to rule out PE. Changes from previous H/P or p: No Changes Eyes: No Pain, No Vision change, No Conjunctivae inflammation, No Eyelid inflammation, No Other, No Redness ENT: No Ear pain, No Ear discharge, No Nose pain, No Nose discharge, No Nose congestion, No Mouth pain, No Mouth swelling, No Throat pain, No Throat swelling, No Other Cardiovascular: Chest Pain; No Palpitations, No Orthopnea, No Paroxysmal Noc. Dyspnea, No Edema, No Lt Headedness, No Other Respiratory: No Cough, No Dry; Shortness of breath; No SOB with excertion, No Wheezing, No Hemoptysis, No Pleuritic Pain, No Sputum, No Other Gastrointestinal: Nausea, Vomiting; No Abdominal Pain, No Diarrhea, No Constipation, No Melena, No Hematochezia, No Other Genitourinary: No Dysuria, No Frequency, No Incontinence, No Hematuria, No Retention, No Other Musculoskeletal: No other, No neck pain, No shoulder pain, No arm pain, No back pain, No hand pain, No leg pain, No foot pain Skin: No Rash, No Lesions, No Jaundice, No Bruising, No Other Objective Vitals Vital Signs Date Time Temp Pulse Resp B/P (MAP) Pulse Ox O2 Delivery O2 Flow Rate FiO2 09/14/25 17:11 98.2 70 20 134/92 (106) 95 98.2 09/14/25 08:00 Nasal Cannula* 2 28 Intake/Output Intake and Output 09/14/25 07:00 Intake Total 1210 ml Balance 1210 ml Intake Oral 710 ml IV Total 500 ml # Voids 3 Exam HEENT pupils are reactive Neck is supple CVS S1-S2 regular rate and rhythm SP bilateral clear GI positive bowel sounds Extremities no edema 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 Medications Current Medications Medications Dose Ordered Sig/Wan Route Start Time Stop Time Status Last Admin Dose Admin Nitroglycerin 0.4 mg Q5MINP PRN SL 09/12/25 15:15 Morphine Sulfate 2 mg Q30M PRN IV 09/12/25 15:15 Piperacillin Sod/ Tazobactam Sod 100 ml @ 25 mls/hr Q8HR IV 09/12/25 22:00 09/14/25 05:56 25 MLS/HR Aspirin 81 mg DAILY PO 09/13/25 10:00 09/14/25 08:42 81 MG Clopidogrel Bisulfate 75 mg DAILY PO 09/13/25 10:00 09/14/25 08:42 75 MG Ondansetron HCl 4 mg Q4HPRN PRN IV 09/12/25 20:45 09/12/25 21:31 4 MG Sodium Chloride 1,000 ml @ 50 mls/hr Q20H IV 09/12/25 20:45 09/12/25 20:45 50 MLS/HR Atorvastatin Calcium 40 mg HS PO 09/13/25 22:00 09/13/25 21:44 40 MG Acetaminophen 650 mg Q6HP PRN PO 09/14/25 06:30 09/14/25 06:34 650 MG Sacubitril/ Valsartan 0.5 tab BID PO 09/14/25 10:00 09/14/25 10:30 0.5 TAB Empaglifozin 10 mg DAILY PO 09/14/25 10:00 09/14/25 10:30 10 MG Spironolactone 12.5 mg DAILY PO 09/14/25 10:00 09/14/25 10:30 12.5 MG Laboratory Results Laboratory Tests 09/13/25 05:31 09/14/25 05:37 Chemistry Test 09/14/25 05:37 Albumin 3.3 g/dL (3.2-4.8) Calcium Level 8.7 mg/dL (8.7-10.4) Total Protein 6.3 g/dL (5.7-8.2) Coagulation Test 09/14/25 15:56 D-Dimer, Quantitative 1.64 mg/L FEU (0.0-0.49) H LFT Test 09/14/25 05:37 Alanine Aminotransferase (ALT) 30 U/L (7-40) Alkaline Phosphatase 63 U/L (46-116) Aspartate Amino Transferase (AST) 32 U/L (13-40) Total Bilirubin 1.3 mg/dL (0.2-1.0) H Microbiology Microbiology Date/Time Source Procedure Growth Status 09/12/25 15:45 Blood Blood Culture - Preliminary NO GROWTH AFTER 48 HOURS OF INCUBATION. Resulted Assessment/Plan Assessment/Plan 85-year-old female with a known history of COPD, hypothyroidism initially presented to hospital with chest pain found to have 1. NSTEMI type 1 status post left heart catheterization shows normal coronary 2. Takotsubo cardiomyopathy EF of 35 years 3. Hypothyroidism 4. COPD 5. Leukocytosis likely reactive 6. Acute hypoxic respiratory failure requiring O2 supplementation 7. Elevated D-dimer rule out PE -CT angio to rule out PE, continue O2 supplementation, discharge plan after CT angio was done. Plan discussed with: Patient My Orders Orders - CHRISSY BURCH MD Procedure Category Date Status Time * Fbi Profiler CONS 09/14/25 Transmitted Consult Discharge DISCHARGE 09/14/25 Transmitted 14:[address] 09/14/25 Logged Contrast 16:33 Date of Service: Sep 14, 2025 Billing Provider: CHRISSY BURCH MD Common Visit Codes: NOT BILLABLE CHRISSY BURCH MD Sep 14, 2025 17:31
[2025-09-15 01:03] VITALS: BP 107/68; PULSE 58; RESP 17; TEMP 97.9; O2SAT 95
[2025-09-15 05:00] VITALS: BP 114/45; PULSE 60; RESP 18; TEMP 97.5; O2SAT 95
[2025-09-15 07:00] VITALS: PULSE 3; RESP 18; O2SAT 96
[2025-09-15 08:00] VITALS: PULSE 3; PULSE 63; RESP 18; O2SAT 96
[2025-09-15] MEDS: IOHEXOL 350 MG/ML 100ML IJ ONE (08:11)
--- NOTE | 2025-09-15 08:54 | DVH ---
CT CT ANGIO CHEST CONTRAST INDICATION: Elevated D-dimers rule out PE EXAM DATE: 09/15/2025 08:20 AM COMPARISON: None RADIATION DOSE: CTDIvol: 19 mGy, DLP: 695 mGy*cm PROCEDURE: Helical CT angiographic images were obtained of the chest with intravenous contrast. Sagi ttal and coronal reconstructions as well as MIPS are provided. Maximum intensity projections performe d (MIPs) were performed for CTA. ADDITIONAL IMAGES / REFORMATS: None All CT scans at this medical facility are performed using dose modulation techniques as appropriate t o a performed exam including the following: Automated exposure control was utilized; adjustment of th e MA and/or KV according to patient size; and use of iterative reconstruction technique. FINDINGS: Bones: Scattered degenerative changes are noted in the visualized osseous structures. Visualized Abdomen: Normal. Chest Wall: Normal. Soft tissues: Normal. Mediastinum: Normal. Heart: Normal. Vessels: No filling defects in the visualized pulmonary arteries including the segmental and subsegme ntal pulmonary arteries. Lymph Nodes: Normal. Pleura: Trace bilateral pleural effusion. Airways: Normal. Lung: Left upper lobe subpleural consolidation with calcification likely rounded atelectasis. Other: None IMPRESSION: No pulmonary embolism in the visualized pulmonary arteries including the segmental and subsegmental p ulmonary arteries. Left upper lobe subpleural consolidation with calcification likely rounded atelectasis. Trace bilater al pleural effusion.
[2025-09-15 09:00] VITALS: BP 134/53; PULSE 41; RESP 20; TEMP 98; O2SAT 94
[2025-09-15] MEDS ORDERED: LEVO100T8 PO (12:22)
[2025-09-16] MEDS ORDERED: LEVOTHYROXINE SODIUM 100 MCG TAB PO SCH (06:00)
--- NOTE | 2025-09-16 08:36 | ECG ---
[facility] Test Date: 2025-09-15 Test Time: 10:13:19 Pat Name: FLAVIA FERNANDEZ Department: Room: 0246T A Gender: F Straw Hat Presser: KRISTY : 1940 Requested By: CHRISSY BURCH Order Number: [id number] Reading MD: Measurements Intervals [place] Rate: 92 P: 0 AK: 0 QRS: -30 QRSD: 112 T: 155 QT: 382 QTc: 473 Interpretive Statements Atrial fibrillation Abnormal R-wave progression, late transition LVH with IVCD and secondary repol abnrm Please click the below link to view image of tracing.
--- NOTE | 2025-09-16 11:10 | DVHDS2 ---
Discharge Summary Date of Admission Sep 12, 2025 at 15:07 Date of Discharge: Sep 14, 2025 Labs/Diagnostic Data: Laboratory Results Test 09/14/25 15:56 09/14/25 05:37 09/13/25 14:06 09/13/25 05:31 D-Dimer, Quantitative 1.64 mg/L FEU (0.0-0.49) Sodium Level 140 mmol/L (136-145) Potassium Level 3.8 mmol/L (3.5-5.1) Chloride Level 109 mmol/L (98-107) Carbon Dioxide Level 22 mmol/L (20-31) Anion Gap 9 (5-15) Blood Urea Nitrogen 24 mg/dL (9-23) Creatinine 1.06 mg/dL (0.550-1.02) Glomerular Filtration Rate Calc 51 mL/min (>90) BUN/Creatinine Ratio 22.6 (10.0-20.0) Serum Glucose 93 mg/dL (74-106) Calcium Level 8.7 mg/dL (8.7-10.4) Total Bilirubin 1.3 mg/dL (0.2-1.0) Aspartate Amino Transferase (AST) 32 U/L (13-40) Alanine Aminotransferase (ALT) 30 U/L (7-40) Alkaline Phosphatase 63 U/L (46-116) Total Protein 6.3 g/dL (5.7-8.2) Albumin 3.3 g/dL (3.2-4.8) Prothrombin Time 11.5 sec (9.3-11.8) Prothrombin Time INR 1.09 (0.9-1.15) Activated Partial Thromboplast Time 60.9 SEC (24.5-34.5) White Blood Count 9.4 10^3/uL (4.4-10.8) Red Blood Count 3.82 10^6/uL (4.0-5.20) Hemoglobin 11.9 g/dL (12.2-16.2) Hematocrit 35.7 % (36.0-46.0) Mean Corpuscular Volume 93.5 fL (80.0-100.0) Mean Corpuscular Hemoglobin 31.3 pg (28.0-32.0) Mean Corpuscular Hemoglobin Concent 33.4 g/dL (32.0-36.0) Red Cell Distribution Width 13.9 % (11.8-14.3) Platelet Count 168 10^3/uL (140-450) Mean Platelet Volume 9.1 fL (6.9-10.8) Neutrophils (%) (Auto) 73.5 % (37.0-80.0) Lymphocytes (%) (Auto) 12.2 % (10.0-50.0) Monocytes (%) (Auto) 14.1 % (0.0-12.0) Eosinophils (%) (Auto) 0.1 % (0.0-7.0) Basophils (%) (Auto) 0.1 % (0.0-2.0) Neutrophils # (Auto) 6.9 10 ^3/uL (1.6-8.6) Lymphocytes # (Auto) 1.1 10 ^3/uL (0.4-5.4) Monocytes # (Auto) 1.3 10 ^3/uL (0-1.3) Eosinophils # (Auto) 0 10 ^3/uL (0-0.8) Basophils # (Auto) 0 10 ^3/uL (0-0.2) Nucleated Red Blood Cells 0.0 % Test 09/12/25 15:45 09/12/25 14:55 Hemoglobin A1c 5.4 % A1C (<5.7) Lactic Acid Level 1.5 mmol/L (0.4-2.0) Magnesium Level 1.7 mg/dL (1.6-2.6) B-Type Natriuretic Peptide 984.84 pg/mL (0-100) Vitamin B12 Level 703 pg/mL (211-911) Vitamin D 25-Hydroxy 32.9 ng/mL (30.0-100) Thyroid Stimulating Hormone (TSH) 0.80 uIU/mL (0.55-4.78) Troponin I High Sensitivity 2587 ng/L (</=34) Other Laboratory Tests 09/14/25 05:37 09/13/25 05:31 Brief Hx & Hospital Course: 85-year-old female with a known history of COPD, hypothyroidism initially presented to hospital with chest pain found to have NSTEMI type 1. Patient underwent left heart catheterization which showed normal coronary arteries but because of cardiomyopathy with EF of 35%. Patient walked with physical therapy received, she was desaturating to 80%, eventually O2 supplementation was arranged. D-dimer was high , CT angio shows no evidence of PE. There is some subpleural consolidation with calcification in the left upper lobe outpatient follow-up with the repeat CT chest and radiation control worker was recommended. Patient requested levothyroxine prescription which would be prescribed. Patient being discharged under stable condition. Condition at Discharge: Stable Final Diagnosis/Problems List 85-year-old female with a known history of COPD, hypothyroidism initially presented to hospital with chest pain found to have 1. NSTEMI type 1 status post left heart catheterization shows normal coronary arteries 2. Takotsubo cardiomyopathy with the EF of 35% 3. Hypothyroidism 4. COPD 5. Leukocytosis likely reactive 6. Acute hypoxic respiratory failure with a desaturation requiring O2 supplementation. Please arrange2 L of oxygen by continuous nasal cannula Discharge Disposition: Home with [facility] Discharge Will this Physician continue t: No Discharge Instruct/Medications Diet: Cardiac 2g Na,low cholest Activity: No Restrictions, As Tolerated Follow Up/Referral: Please follow up with the PCP in 1-2 weeks Follow up with Dr. Kohli in 1-2 weeks Medications: Resume medication as prescribed. New Medications: Atorvastatin Calcium (Atorvastatin Calcium) 40 Mg Tab 1 TAB PO DAILY, #30 TAB 5 Refills Empagliflozin (Jardiance) 10 Mg Tab 10 MG PO DAILY for 30 Days, #30 TAB Levothyroxine Sodium (Levothyroxine Sodium) 100 Mcg Tab 100 MCG PO QAM@0600 for 30 Days, #30 TAB Nitroglycerin (Ntrostat Sublingual) 0.4 Mg Sl 0.4 MG SL Q5MINP PRN, #100 TAB Sacubitril-Valsartan (Entresto 24-26 mg) 1 Tab Tab 0.5 TAB PO BID, #60 TAB Spironolactone (Aldactone) 25 Mg Tab 12.5 MG PO DAILY for 30 Days, #15 TAB Scheduled Atorvastatin Calcium (Atorvastatin Calcium), 1 TAB PO DAILY Empagliflozin (Jardiance), 10 MG PO DAILY Levothyroxine Sodium (Levothyroxine Sodium), 100 MCG PO QAM@0600 Sacubitril-Valsartan (Entresto 24-26 mg), 0.5 TAB PO BID Spironolactone (Aldactone), 12.5 MG PO DAILY Scheduled PRN Nitroglycerin (Ntrostat Sublingual), 0.4 MG SL Q5MINP PRN Discharge Statement: "Patient was advised to return to the ER or call 911 if any headaches, dizziness, shortness of breath, chest pain, abdominal pain, bleeding, fevers, or worsening of medical condition. Patient was counseled about treatment plan, medications, possible side effects, patientverbalized understanding. All questions were answered to the best of my ability. This discharge took greater then 30 minutes in planning, reviewing documentation, counseling the patient, and discussing with other team members." ASSESSMENT ASSESSMENT Assessment 85-year-old female with a known history of COPD, hypothyroidism initially presented to hospital with chest pain found to have 1. NSTEMI type 1 status post left heart catheterization shows normal coronary arteries 2. Takotsubo cardiomyopathy with the EF of 35% 3. Hypothyroidism 4. COPD 5. Leukocytosis likely reactive 6. Acute hypoxic respiratory failure with a desaturation requiring O2 supplementation. Please arrange2 L of oxygen by continuous nasal cannula Date of Service: Sep 15, 2025 Billing Provider: CHRISSY BURCH MD Common Visit Codes: NOT BILLABLE CHRISSY BURCH MD Sep 15, 2025 12:21
== END 2025-09-15 12:56 | disposition home or self-care (01) | DRG 280 ==
LOC: EDBD 12:15 → ER 12:15 → OVERFLOW 15:07 → TELE-EAST 18:09
PROVIDERS: ADMIT Internal Medicine; ATTEND Internal Medicine
PROC: 4A023N7 Measurement of Cardiac Sampling and Pressure, Left Heart, Percutaneous Approach (ICD-10-PCS; principal; 2025-09-13)
PROC: B211YZZ Fluoroscopy of Multiple Coronary Arteries using Other Contrast (ICD-10-PCS; 2025-09-13)
DX: I21.4 Non-ST elevation (NSTEMI) myocardial infarction (principal); J96.01 Acute respiratory failure with hypoxia; I51.81 Takotsubo syndrome; L03.818 Cellulitis of other sites; E03.9 Hypothyroidism, unspecified; I50.9 Heart failure, unspecified; I11.0 Hypertensive heart disease with heart failure; D72.829 Elevated white blood cell count, unspecified; G90.89 Other disorders of autonomic nervous system; J44.9 Chronic obstructive pulmonary disease, unspecified; Z88.8 Allergy status to other drugs, medicaments and biological substances; Z90.49 Acquired absence of other specified parts of digestive tract; Z79.899 Other long term (current) drug therapy; Z82.49 Family history of ischemic heart disease and other diseases of the circulatory system
CPT/HCPCS: 36415; 71045; 71275; 74176; 80048; 80053; 82306; 82607; 83036; 83605; 83735; 83880; 84443; 84484; 85025; 85379; 85610; 85730; 86850; 86900; 86901; 87040; 93005; 93306; 93458; 96365; 96366; 96368; 99152; 99291; 99292; G0378; J2250; J2405; J2543; J3490; Q9967